=== PATIENT | male | born 1995 | race Caucasian/White ===

== ENCOUNTER 2018-08-29 18:49 | Emergency (ER) | payer SELFPAY ==
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
[2018-08-29] MEDS ORDERED: NS(*) 0.9% 1000 ML BAG 1,000 ML IV ONE ×2 (19:15→20:00)
[2018-08-29 19:18] LABS: PLATELET COUNT, AUTOMATED 422 K/uL (150-450)
[2018-08-29] MEDS ORDERED: ORPHENADRINE 60MG/2ML INJ IVP ONE (20:00)
--- NOTE | 2018-08-29 20:41 | RADIOLOGY IMAGING REPORT ---
FACILITY: [facility] [place] PATIENT NAME: Jordon Arechiga : 1995 MR: [id number] V: [id number] EXAM DATE: ORDERING PHYSICIAN: MARSHALL MUNGUIA TECHNOLOGIST: Location: [facility] Patient: Jordon Arechiga : 1995 Visit/Account:[id number] Date of Sevice: 08/29/2018 INDICATION: r post rib pain. DATE: 08/29/2018 8:34 PM. TECHNIQUE: RIBS RIGHT, CHEST PA AND LAT COMPARISON: None FINDINGS: A BB marker has been placed over the right inferior rib cage. No fracture is identified. Heart size is normal. No effusion, consolidation, or pneumothorax. The lungs are mildly hyperinflat ed. IMPRESSION: The lungs are clear, and no rib fracture is identified. Report Dictated By: Holden Shea MD at 08/29/2018 8:34 PM Report E-Signed By: Holden Shea MD at 08/29/2018 8:37 PM WSN:[id number]
--- NOTE | 2018-08-29 20:42 | RADIOLOGY IMAGING REPORT ---
FACILITY: [facility] - [place] PATIENT NAME: Jordon Arechiga : 1995 MR: [id number] V: [id number] EXAM DATE: ORDERING PHYSICIAN: MARSHALL MUNGUIA TECHNOLOGIST: Location: [facility] [place] Patient: Jordon Arechiga : 1995 Visit/Account:[id number] Date of Sevice: 08/29/2018 INDICATION: r post rib pain. DATE: 08/29/2018 8:34 PM. TECHNIQUE: RIBS RIGHT, CHEST PA AND LAT COMPARISON: None FINDINGS: A BB marker has been placed over the right inferior rib cage. No fracture is identified. Heart size is normal. No effusion, consolidation, or pneumothorax. The lungs are mildly hyperinflat ed. IMPRESSION: The lungs are clear, and no rib fracture is identified. Report Dictated By: Holden Shea MD at 08/29/2018 8:34 PM Report E-Signed By: Holden Shea MD at 08/29/2018 8:37 PM WSN:[id number]
[2018-08-29 22:00] VITALS: BP 101/63
[2018-08-29] MEDS ORDERED: CYCLOBENZAPRINE HCL 10 MG TH PO ONE (22:00)
== END 2018-08-29 22:13 | disposition home or self-care (01) ==
LOC: ER 18:58
DX: S20.211A Contusion of right front wall of thorax, initial encounter (principal); W17.89XA Other fall from one level to another, initial encounter
CPT/HCPCS: 71046; 71100; 85025; 96361; 96374; 99284; J2360; J7030; 82040; 82247; 82310; 82374; 82435; 82565; 82947; 84075; 84132; 84155; 84295; 84450; 84460; 84520

== ENCOUNTER → 2018-08-29 | Outpatient (CLI) | payer SELFPAY | LOC: AMB 18:39 | PROVIDERS: ATTEND Nurse Practitioner | DX: R07.89 Other chest pain (principal) | CPT/HCPCS: A0425; A0429 ==